=== PATIENT | male | born 1955 | race Asian ===

== ENCOUNTER 2021-01-21 15:54 | Emergency (ER) | payer SELFPAY ==
[~2021-01-21] VITALS: Ht 160 cm; Wt 63.6 kg
[2021-01-21 16:51] LABS: BASOPHILS % 0.5 % (0.0-2.0); EOSINOPHILS % 1.9 % (0.0-5.0); HEMATOCRIT. 40.3 % (42.0-52.0); HEMOGLOBIN. 13.6 g/dL (14.0-18.0); LYMPHOCYTES % 22.5 % (20.0-50.0); MEAN CORPUSCULAR HEMOGLOBIN 31.3 pg (28.0-32.0); MEAN CORPUSCULAR VOLUME 92.8 fL (80.0-94.0); MEAN PLATELET VOLUME 7.8 fl (7.4-10.4); MONOCYTES % 8.8 % (2.0-8.0); NEUTROPHILS % 66.3 % (40.0-76.0); PLATELET 215 x1000/uL (130-400); RED BLOOD CELL COUNT 4.34 mill/uL (4.7-6.1); RED CELL DISTRIBUTION WIDTH 12.7 % (11.6-14.6)
[2021-01-21 16:58] LABS: CHLORIDE 107 mEq/L (98-107)
[2021-01-21 17:02] LABS: ETHANOL BLOOD < 10 mg/dL
[2021-01-21 17:50] VITALS: BP 125/75
[2021-01-21 18:22] LABS: CLARITY URINE CLEAR (CLEAR); COLOR URINE YELLOW (YELLOW); KETONES URINE NEGATIVE (NEGATIVE); LEUKOCYTE ESTERASE URINE NEGATIVE (NEGATIVE); NITRITE URINE NEGATIVE (NEGATIVE); OCCULT BLOOD URINE NEGATIVE (NEGATIVE); PH URINE 6.5 (4.5-8.0); PROTEIN URINE NEGATIVE (NEGATIVE); SPECIFIC GRAVITY URINE 1.019 (1.005-1.030); UROBILINOGEN URINE 0.2 E.U./dL (0.2-1.0)
[2021-01-21 18:32] LABS: *AMPHETAMINES SCREEN URINE NEGATIVE (NEGATIVE); *BARBITURATES SCREEN URINE NEGATIVE (NEGATIVE); *BENZODIAZEPINES SCREEN URINE NEGATIVE (NEGATIVE); *COCAINE SCREEN URINE NEGATIVE (NEGATIVE); METHADONE URINE SCREEN NEGATIVE (NEGATIVE)
[2021-01-21 18:33] LABS: CANNABINOID URINE SCREEN NEGATIVE (NEGATIVE); OPIATES URINE SCREEN NEGATIVE (NEGATIVE); PHENCYCLIDINE URINE SCREEN NEGATIVE (NEGATIVE)
== END 2021-01-21 21:53 | disposition home or self-care (01) ==
LOC: ER 15:54
DX: R10.13 Epigastric pain (principal); K92.1 Melena; I10 Essential (primary) hypertension
CPT/HCPCS: 36415; 71045; 74174; 80053; 80305; 80320; 81003; 83605; 84484; 85025; 86850; 86900; 93005; 99285; G0480

== ENCOUNTER 2023-06-25 10:37 | Emergency (ER) | payer MEDICAID ==
[~2023-06-25] VITALS: Ht 160 cm; Wt 83.0 kg
[2023-06-25 10:57] VITALS: O2SAT 100
[2023-06-25 11:58] LABS: CHLORIDE 104 mEq/L (98-107); INDEX HEMOLYSI 2 (1-3); INDEX ICTERIC 1 (1-4); INDEX LIPEMIC 2 (1-3); POTASSIUM 4.8 mEq/L (3.5-5.1); SODIUM 135 mEq/L (136-145)
[2023-06-25 12:00] LABS: BASOPHILS % 0.5 % (0.0-2.0); EOSINOPHILS % 1.6 % (0.0-5.0); HEMATOCRIT. 40.9 % (42.0-52.0); HEMOGLOBIN. 13.6 g/dL (14.0-18.0); LYMPHOCYTES % 23.6 % (20.0-50.0); MEAN CORPUSCULAR HGB CONC 33.4 g/dL (31.0-37.0); MEAN CORPUSCULAR VOLUME 89.8 fL (80.0-94.0); MEAN PLATELET VOLUME 7.3 fl (7.4-10.4); MONOCYTES % 7.6 % (2.0-8.0); NEUTROPHILS % 66.7 % (40.0-76.0); PLATELET 258 x1000/uL (130-400); RED BLOOD CELL COUNT 4.55 mill/uL (4.7-6.1); WHITE BLOOD COUNT 7.3 x1000/uL (4.5-11.0)
[2023-06-25 12:05] LABS: ALANINE AMINOTRANSFERASE 28 IU/L (13-61); ALBUMIN 3.8 g/dL (3.4-5.0); ASPARTATE AMINOTRANSFERASE 18 IU/L (15-37); BILIRUBIN TOTAL 0.3 mg/dL (0.1-1.0); CALCIUM 8.7 mg/dL (8.5-10.1); CARBON DIOXIDE 29 mEq/L (21-32); CREATININE 0.9 mg/dL (0.6-1.3); GLUCOSE 125 mg/dL (70-105); PROTEIN TOTAL 8.1 g/dL (6.0-8.3); UREA NITROGEN BLOOD 10 mg/dL (7-21)
[2023-06-25] MEDS ORDERED: ASPIRIN 81MG TABLET PO ONE (17:00)
[2023-06-25] MEDS ORDERED: SODIUM CHLORIDE 0.9% 1,000 ML IV ONE (17:15)
[2023-06-25] MEDS ORDERED: MECLIZINE 25MG TABLET PO ONE (17:15)
[2023-06-25 21:42] VITALS: BP 154/83; PULSE 99; RESP 20; TEMP 98.6
== END 2023-06-25 21:43 | disposition left against medical advice (07) ==
LOC: ER 12:07 → CANBEDREQ 18:38 → ER 21:43
DX: R42 Dizziness and giddiness (principal); I10 Essential (primary) hypertension
CPT/HCPCS: 80053; 85025; 36415; 70450; 93005; 96360; 99284; Z7610 ×2; J8597; J7030

== ENCOUNTER 2024-09-22 10:49 | Emergency (ER) | payer MEDICAID ==
[~2024-09-22] VITALS: Ht 167.6 cm; Wt 75.0 kg
[2024-09-22 11:06] VITALS: O2SAT 100
[2024-09-22] MEDS ORDERED: KETO10TA2 MT (15:06)
[2024-09-22 16:13] VITALS: BP 133/77; PULSE 100; RESP 18; TEMP 36.44736; O2SAT 100
== END 2024-09-22 16:13 | disposition home or self-care (01) ==
LOC: ER 10:49
DX: T81.9XXA Unspecified complication of procedure, initial encounter (principal); I10 Essential (primary) hypertension
CPT/HCPCS: 93971; 99284

== ENCOUNTER 2024-12-09 13:18 | Emergency (ER) | payer MEDICAID ==
[~2024-12-09] VITALS: Ht 160 cm; Wt 77.5 kg
[~2024-12-09 13:18] MED LIST: KETO10TA2 MT
[2024-12-09 13:45] VITALS: O2SAT 99
[2024-12-09 17:15] VITALS: BP 144/77; PULSE 74; RESP 16; TEMP 36.72516; O2SAT 100
== END 2024-12-09 17:18 | disposition home or self-care (01) ==
LOC: ER 13:18
DX: R42 Dizziness and giddiness (principal); I10 Essential (primary) hypertension
CPT/HCPCS: 99284